=== PATIENT | male | born 1935 | race Caucasian/White ===

== ENCOUNTER → 2016-11-20 | Outpatient (CLI) | payer MEDICARE, MEDICAID ==
[~2016-11-20] MED LIST: ALPR0.5T; ASP81 PO; CALC300T34; CARV6.25 PO; DULO60CA6; DUR25P TD; HYDR-906 PO; LEVO250T35 PO; LEVO25TA53 PO; MULT1CAP57; OMEP20CA16; PREG50CA PO; [UNRECOGNIZED DRUG - CODE] IV
--- NOTE | 2016-11-20 17:18 | RADRPT ---
PROCEDURE: XR Pelvis and Hips. CLINICAL INDICATION: Pelvic pain. Bilateral hip pain. TECHNIQUE: Five views. Frontal pelvis. Frontal and lateral right hip. Frontal and lateral left hip. COMPARISON: No prior studies are available for comparison. FINDINGS: There is no fracture or dislocation. The soft tissues are normal. There is a right hip total arthroplasty which appears satisfactory. Previously noted right lateral surgical drains are no longer present. Antibiotic beads are no longer visualized. The left hip is unremarkable. There is no lytic or blastic lesion. There are degenerative changes of the lower lumbar spine. IMPRESSION: 1. Satisfactory postoperative appearance of the right hip. 2. Degenerative changes of the lower lumbar spine. RPTAT: QQ .Arslan Hung MD, MD Date Time Electronically viewed and signed by .Arslan Hung MD, on 11/20/2016 17:18 .R/
--- NOTE | 2016-11-21 10:44 | HKNOTE ---
DATE OF SERVICE: Patient comes in for a checkup on his right hip. The hip has minimal pain and he is pleased with th e results of the surgery. On physical examination, he walks without a walking aid. His temperature is 98.6. The wound over t he right thigh is completely healed without any sign of infection. Small sutures which were previou sly hidden under eschar are now visible and these were removed today under sterile conditions. Note, that patient complains of low back pain with radiation down both legs to the knee and sometime s even below the knee. He also complains that in his left hip he feels "a bone spur" near the upper end in the hip. On physical examination indeed, there does appear that there is some type of bony protuberance where he is pointing. His x-rays of his left hip did not show any such protuberance. The wound over the right side are completely healed. MANAGEMENT: The patient will be seen again in 3 months' time for reevaluation. He is being seen to day for his right hip. Other issues he wants to bring up like chronic sciatica and an osteophyte of the left hip will be dealt with next time. Dictated By: JAELYN NEGRETE/STEPHENIE Conf#: [id number] DID#: [id number]
== END | disposition home or self-care (01) ==
LOC: HKI 15:39
DX: Z47.89 Encounter for other orthopedic aftercare (principal); M25.551 Pain in right hip
CPT/HCPCS: 73523; G0463

== ENCOUNTER → 2016-12-16 | Outpatient (CLI) | payer MEDICARE, MEDICAID ==
[~2016-12-16] MED LIST changes: -ASP81 PO; +ASPI81TA3 PO
--- NOTE | 2016-12-16 18:13 | HKNOTE ---
DATE OF SERVICE: 12/16/2016 MAIN COMPLAINT: Pain in the right hip. 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 He developed progressively increasing pain in the right hip over the past 2 days. There has not been any recent history of infection. He has not had any fevers or chills. PHYSICAL EXAMINATION GENERAL: He walks with 2 walking aids. He does not appear to be in pain. VITAL SIGNS: Blood pressure 110/80, temperature 98.4. RIGHT HIP: No external signs of infection or inflammation around the wound. The hip has an excelle nt range of motion without any pain. IMAGING: X-rays obtained today of the right hip do not show anything untoward with the alignment of the implants or the quality of the bones. DISCUSSION: The patient may have just simply overused his right hip. MANAGEMENT: He was given reassurance. He will be seen again in 2 months' time or sooner if necessa ry. Dictated By: JAELYN NEGRETE/STEPHENIE Conf#: [id number] DID#: [id number]
--- NOTE | 2016-12-17 14:50 | RADRPT ---
PROCEDURE: XR Right hip and pelvis. CLINICAL INDICATION: Right hip pain. Pelvic pain. Postop. TECHNIQUE: Two views. Frontal pelvis and lateral right hip. COMPARISON: 11/20/2016. FINDINGS: There is no fracture or dislocation. The soft tissues are normal. There is a right hip total arthroplasty which appears satisfactory. The left hip is grossly normal. There is hardware in the left femur distally. There is no lytic or blastic lesion. The upper pelvis is not completely included on the image. IMPRESSION: 1. Satisfactory postoperative appearance of the right hip. 2. Grossly normal appearance of the left hip. 3. Hardware in the left femur. RPTAT: QQ .Arslan Hung MD, MD Date Time Electronically viewed and signed by .Arslan Hung MD, on 12/17/2016 14:50 .R/
== END | disposition home or self-care (01) ==
LOC: HKI 15:06
DX: M25.551 Pain in right hip (principal)
CPT/HCPCS: 73502; G0463

== ENCOUNTER → 2016-12-24 | Outpatient (CLI) | payer MEDICARE, MEDICAID ==
--- NOTE | 2016-12-24 15:47 | RADRPT ---
PROCEDURE: Left knee radiographs. CLINICAL INDICATION: Left knee pain. Postop. TECHNIQUE: Three views. Weight bearing. Frontal, lateral, and patellar view. COMPARISON: 06/18/2016. FINDINGS: There is no fracture or dislocation. Vascular calcifications are present consistent with atherosclerosis. There is a total left knee arthroplasty which appears satisfactory. There is no lytic or blastic lesion. There is no joint effusion. IMPRESSION: 1. Atherosclerosis. 2. Satisfactory postoperative appearance of the left knee. RPTAT: QQ .Arslan Hung MD, MD Date Time Electronically viewed and signed by .Arslan Hung MD, MD on 12/24/2016 15:46 .R/
--- NOTE | 2016-12-26 06:13 | HKNOTE ---
DATE OF SERVICE: 12/24/2016 MAIN COMPLAINT: Pain in his left knee and pain in the right hip. HISTORY OF PRESENT ILLNESS: The pain in the right hip is localized to the buttocks and radiates anila n his leg to the ankle. The pain in the left knee is approximately around the suprapatellar area. He has a long history of problems with his lower back. He has never had an MRI scan of the lumbar s pine because he had a pacemaker. PHYSICAL EXAMINATION: VITAL SIGNS: His temperature is 98.0, blood pressure 135/65. EXAMINATION OF THE LEFT KNEE: No external sign of infection or inflammation. Minimal pain on putti ng the knee through a range of motion. EXAMINATION OF THE RIGHT HIP: No external sign of infection or inflammation. NEUROLOGIC: Motor examination reveals no muscle deficit in the lower extremities. Deep tendon refle xes in the lower extremities: Right knee jerk plus, left knee jerk plus, right ankle jerk plus, lef t ankle jerk plus. Straight leg raising is negative bilaterally at 80 degrees. Lasegue and BLESSING anali ts are negative. MANAGEMENT: 1. The patient is being sent for a CAT scan of the lumbar spine. 2. The patient is being sent for CBC, sed rate, and C-reactive protein. He will be seen back again in 1 week's time for reevaluation. Dictated By: JAELYN NEGRETE/STEPHENIE Conf#: [id number] DID#: [id number] CC: JAELYN MATTHEWS MD;*EndCC*
== END | disposition home or self-care (01) ==
LOC: HKI 13:45
DX: M25.562 Pain in left knee (principal); M25.551 Pain in right hip; Z95.0 Presence of cardiac pacemaker
CPT/HCPCS: 73562; G0463

== ENCOUNTER → 2017-01-06 | Outpatient (CLI) | payer MEDICARE, MEDICAID ==
--- NOTE | 2017-01-07 20:18 | HKNOTE ---
DATE OF SERVICE: The patient comes in for review of his MRI scan. Review of the MRI scan of his lumbar spine casimiro esquivel on 12/25/[address] Louann Tripp as showing "at L4-L5, severe narrowing of the can al including the lateral recesses." The patient now has pain in his right groin for the first time. The labs from his last visit showed a sedimentation rate of 34. The C-reactive protein was 0.24. W rico cell count was 6.0 (low). PHYSICAL EXAMINATION: The patient has pain in his right hip on putting it through range of motion. MANAGEMENT: Under sterile conditions, the right hip was aspirated of some 10 mL of murky fluid. Th e fluid is being sent to the lab for cell count, culture and sensitivity. He was given prophylactic antibiotic to cover him. Dictated By: JAELYN NEGRETE/STEPHENIE Conf#: [id number] DID#: [id number]
== END | disposition home or self-care (01) ==
LOC: HKI 13:20
DX: M25.551 Pain in right hip (principal)
CPT/HCPCS: 20610

== ENCOUNTER → 2017-01-13 | Outpatient (CLI) | payer MEDICARE, MEDICAID ==
--- NOTE | 2017-01-13 19:21 | HKNOTE ---
DATE OF SERVICE: 01/13/2017 The patient comes in for review of his lab work. The fluid taken from his right hip joint at the [facility] visit is negative for bacterial growth. He also indicates that the pain in his right groin is mu ch better. He continues to complain of pain in the right buttocks radiating all the way down the le g to the ankle. The patient's most recent sedimentation rate was 34, white cell count 6.0. C-react luci protein 0.24. See the CAT scan result in the chart. The patient has severe spinal stenosis. He is 81 years old a nd he indicates that he would rather not consider surgery to his spine, even if it was offered to dc joseph. I was going to get lower extremity EMGs and nerve conduction studies, but they are obviously of no value if he is not going to have surgery. The patient requests a prescription for physical thera py to strengthen his right leg to ameliorate his sciatica. At his request, he is given a prescripti on for temazepam 15 mg at bedtime p.r.n. Dictated By: JAELYN NEGRETE/STEPHENIE Conf#: [id number] DID#: [id number]
== END | disposition home or self-care (01) ==
LOC: HKI 15:36
DX: M25.551 Pain in right hip (principal); M48.00 Spinal stenosis, site unspecified; Z96.641 Presence of right artificial hip joint

== ENCOUNTER → 2017-01-20 | Outpatient (CLI) | payer MEDICARE, MEDICAID ==
--- NOTE | 2017-01-21 07:32 | HKNOTE ---
DATE OF SERVICE: 01/20/2017 Patient comes in complaining that his left knee is "squeaking" On physical examination, the patient does have a certain amount crepitus in the knee suggesting that he has scar tissue formation. Patient is advised that there is really nothing to do about. It is not a sign that there is any unde rlying problem with the knee replacement. Patient will be starting a course of physical therapy terri orrow which he will continue 3 times a week for 6 weeks, and he will come back after this for reeval uation. Dictated By: JAELYN NEGRETE/STEPHENIE Conf#: [id number] DID#: [id number]
== END | disposition home or self-care (01) ==
LOC: HKI 15:24
DX: Z47.1 Aftercare following joint replacement surgery (principal); Z96.652 Presence of left artificial knee joint
CPT/HCPCS: G0463

== ENCOUNTER → 2017-02-05 | Outpatient (CLI) | payer MEDICARE, MEDICAID ==
--- NOTE | 2017-02-06 03:54 | HKNOTE ---
DATE OF SERVICE: 02/05/2017 The patient comes in complaining of pain and weakness of both quadriceps. He has spinal stenosis. He has had 2 knee replacements. On physical examination, the patient walks without a walking aid. Examination of both knees indicate that the quadriceps mechanism is intact. He has some weakness of the quadriceps [4 out of 5], but he has no pain on attempting to flex the knee passively against re sistance. The patient is going to be honored at the "[facility]" on 03/28/2017. He is anxious that his legs should be strong when he goes up to receive his award. He would like to have physical therapy 3 times a week to ensure that he will be "as good as I can be" by the time that co mes. The patient was warned that he is going to run out of his allotted physical therapy time if he does that, but he says that he does not care and he wants to have as much therapy as he can in the remaining 6 weeks. He was given a prescription with warnings against being overly aggressive for fe ar of rupturing the quadriceps. Dictated By: JAELYN NEGRETE/STEPHENIE Conf#: [id number] DID#: [id number]
== END | disposition home or self-care (01) ==
LOC: HKI 16:03
DX: Z47.89 Encounter for other orthopedic aftercare (principal); Z96.653 Presence of artificial knee joint, bilateral
CPT/HCPCS: G0463

== ENCOUNTER → 2017-04-23 | Outpatient (CLI) | payer MEDICARE, MEDICAID ==
--- NOTE | 2017-04-23 15:56 | PN ---
Date/Time of Note Date/Time of Note DATE: 04/23/17 TIME: 15:51 Outpatient Progress Note Chief Complaint Left hip pain HPI 81-year-old male presents today for left hip pain after fall on 04/21/2017. Patient was able to rise and begin walking without limitation. Denies any head injury or trauma. No focal neurological deficits. Continues with ongoing pain local to the greater trochanteric region of the left hip. Denies any chest pain /tightness. Denies any shortness of breath. History significant for right total hip replacement as well as revision performed on 08/07/2016. Review of Systems Const: No Fever, no chills, no Fatigue, normal appetite, no diaphoresis. Resp: No SOB, no wheezing, no chest pain. CV: No chest pain, no palpitaions, no CHANDRA. Physical Exam Blood pressure is 131/60, temperature is 99.1, pulse is 60, respiratory rate is 12, height is 5 foot 7 inches, weight is 130 pounds. General Appearance: well-developed, well-nourished, in no acute distress. Left hip: Assisted ambulation with single-point cane. Local tenderness to palpation directly over the left greater trochanter. Mild bruising seen on inspection. Patient is seated comfortably at 90. Normal sensory examination to light touch throughout the left lower extremity. Negative Homans sign. Right hip: Seated comfortably at 90. Mild tenderness to palpation of the right greater trochanteric region. X-ray to the right hip on 04/23/2017 showing prosthesis intact and well attached to the bone. No complications status post surgery. X-ray to the left hip on 04/23/2017 showing osteophytosis along the lateral ileal cortex. No evidence of acute injury/fracture at the area of pain or impact. No evidence of acute injury on x-rays. Allergies Coded Allergies: No Known Drug Allergies (Verified Allergy, Unknown, 07/23/16) Assessment/Plan * X-rays performed today * Patient was also seen with Dr. Salazar who recommended cortisone injection for bursitis to the greater trochanter status post fall. Area was cleaned with Betadine. 25-gauge needle used to inject 2 cc of 40 mg Kenalog mixed with 3 cc of 2% lidocaine without epinephrine. Patient tolerated procedure well. * At home exercises discussed. * Ice modalities recommended. * Continue with anti-inflammatories been provided by PCP as he states that it has been helping. Also continue with pain management has been treating patient with [place], Lyrica, Cymbalta and Xanax. * Follow-up as needed Medications Home Meds Active Scripts Piperacillin/Tazobactam Sod (Zosyn) 2.25 Gm Soln, 2.25 GM IV Q12 for 42 Days Prov:RACIEL LLOYD 08/12/16 Levofloxacin* (Levaquin*) 250 Mg Tablet, 250 MG PO DAILY@06 for 42 Days, #42 TAB Prov:RACIEL LLOYD 08/12/16 Aspirin (Aspirin) 81 Mg Chew, 81 MG PO BID for 42 Days, #84 TAB Prov:RACIEL LLOYD 08/07/16 Reported Medications Hydrocodone/Acetaminophen ([place] 5-325 Tablet) 1 Each Tablet, 1 EACH PO, TAB 07/23/16 Fentanyl Patch* (Duragesic Patch*) 25 Mcg/Hr Transdermal Patch, 1 PATCH TD Q72H , PATCH 07/23/16 Pregabalin* (Lyrica*) 50 Mg Capsule, 50 MG PO BID, CAP 07/23/16 Levothyroxine Sodium* (Levothyroxine Sodium*) 25 Mcg Tablet, 25 MCG PO BEFORE BREAKFAST, #30 TAB 07/23/16 Carvedilol* (Coreg*) 6.25 Mg Tablet, 6.25 MG PO BID, TAB 08/30/15 Multivitamins W-Minerals (Multivitamin) 1 Cap Capsule 03/25/11 Calcium Carbonate (Tums EX) 1 Tab.chew Tab.chew 03/25/11 Alprazolam* (Xanax*) 0.5 Mg Tab 03/18/11 Duloxetine Hcl* (Cymbalta*) 60 Mg Capsule. 03/18/11 Omeprazole* (Omeprazole*) 20 Mg Capsule. 03/18/11 CHRISTOPHER PEGUERO PA-C Apr 23, 2017 15:55
--- NOTE | 2017-04-23 17:32 | RADRPT ---
PROCEDURE: XR Pelvis and Hips. CLINICAL INDICATION: Pelvic pain. Bilateral hip pain. TECHNIQUE: Five views. Frontal pelvis. Frontal and lateral right hip. Frontal and lateral left hip. COMPARISON: 12/16/2016. FINDINGS: There is a right hip total arthroplasty which appears satisfactory. The left hip is grossly normal. There is hardware in the distal left femur. The upper pelvis is not included on the image. There is no lytic lesion. IMPRESSION: 1. Satisfactory postoperative appearance of the right hip. 2. Prior distal left femur surgery. RPTAT: QQ .Arslan Hung MD, MD Date Time Electronically viewed and signed by .Arslan Hung MD, on 04/23/2017 17:31 .R/
== END | disposition home or self-care (01) ==
LOC: HKI 13:46
DX: M70.62 Trochanteric bursitis, left hip (principal); Z79.82 Long term (current) use of aspirin
CPT/HCPCS: 73522

== ENCOUNTER → 2017-05-19 | Outpatient (CLI) | payer MEDICARE, MEDICAID ==
--- NOTE | 2017-05-29 12:00 | HKNOTE ---
DATE OF SERVICE: 05/19/2017 HISTORY OF PRESENT ILLNESS: The patient comes in complaining of pain in his right hip. The patient underwent a right total hip replacement in August 2016. His pain is over his right greater trochanter. His left hip was injected for trochanteric bursitis at his last visit. The left hip is no longer painful. He complains of weakness of his right hip flexors. He is under pain management care of Dr. Patel. The patient is very pleased with the pain management doctor. He says, "They treat me like a VIP and put me right to the front of the line whenever I go there." However, on questioning further, all treatment that he ever gets there is to be given prescriptions for [place]. PHYSICAL EXAMINATION: Temperature is 97.8, blood pressure 125/65. He walks without a walking aid. Right hip is full range of motion without pain. He has marked tenderness over the right greater trochanter. IMAGING: X-rays of the right hip taken on 04/23/2017. These do not show any underlying problem with the hip implant that might be the source of his pain. Note that he had an irrigation drainage of the right hip postoperatively for infection. There is absolutely no external sign of infection or inflammation and his temperature is 97.8. DIAGNOSIS: Trochanteric bursitis. MANAGEMENT: 2 cc of Kenalog with 6 cc given in lidocaine in his trochanteric bursa and he will be seen again as necessary. Dictated By: Misha Salazar MD /kirill/tori /Document#: [id number]
== END | disposition home or self-care (01) ==
LOC: HKI 13:45
DX: M70.61 Trochanteric bursitis, right hip (principal); Z47.1 Aftercare following joint replacement surgery; Z96.641 Presence of right artificial hip joint; M25.551 Pain in right hip
CPT/HCPCS: 20610; G0463

== ENCOUNTER → 2017-06-02 | Outpatient (CLI) | payer MEDICARE, MEDICAID ==
--- NOTE | 2017-06-03 06:48 | HKNOTE ---
DATE OF SERVICE: 06/02/2017 INTERVAL HISTORY: The patient continues to complain of pain over the lateral aspect of the left thigh. PHYSICAL EXAMINATION: On examination, once again, it is noted that he has an exostosis or a prominence of bone which he says hurts him all the time and he is tender all the time. The plain x-rays of the left hip were again reviewed. These show some kind of exostosis protruding from the lower end of the pelvis. On physical examination, there is an easily palpable bony prominence which very likely could be this exostosis. MANAGEMENT: The patient is being referred for a CAT scan of the left hip to see the exact anatomy before we commit to removing it. The patient is going to see a spine surgeon tomorrow, Dr. Armstrong at the [facility] [place]. The patient will be seen again after he has had MRI scan. Note: He is not complaining of any pain in the right hip at this time. Dictated By: Misha Salazar MD /kirill/wilian /Document#: [id number]
== END | disposition home or self-care (01) ==
LOC: HKI 14:42
DX: M25.552 Pain in left hip (principal)

== ENCOUNTER → 2017-06-17 | Outpatient (CLI) | payer MEDICARE, MEDICAID ==
--- NOTE | 2017-06-18 10:21 | HKNOTE ---
DATE OF SERVICE: 06/17/2017 MAIN COMPLAINT: The patient comes in with a CAT scan for review. HISTORY OF MAIN COMPLAINT: CAT scan of the left hip is reported by Dr. 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 Pictures were reviewed with the patient. Today, his pain is a lot more vague. It is difficult to determine whether his pain is in the area of the spur/osteochondroma arising from the left ilium or if it is in relationship to the free ectopic bone. The patient also continues to have pain in his right buttock, which all seems to be coming from his lower back. The patient was advised that removing the bony prominence that could be felt in his buttock is no guarantee that his pain will go away. It would appear that the patient was strictly under the impression that this bone was being removed to "give him a cure." The patient would like to think about it and he will call if he wishes us to try and remove some of the offending spur perhaps under local anesthetic (it may be too big to do under local anesthetic alone). Dictated By: Misha Salazar MD /kirill/gallo /Document#: [id number]
== END | disposition home or self-care (01) ==
LOC: HKI 15:48
DX: M25.552 Pain in left hip (principal)

== ENCOUNTER → 2017-10-13 | Outpatient (CLI) | payer MEDICARE, MEDICAID ==
--- NOTE | 2017-10-13 22:10 | HKNOTE ---
DATE OF SERVICE: 10/13/2017 CHIEF COMPLAINT: Left shoulder pain. HISTORY OF PRESENT ILLNESS: This is an 82-year-old male who is complaining of pain in the left shou lder. He states that the pain has been chronic, it has been worsening over the last year. He has d ecreased range of motion. He has difficulty bringing his arm in towards his back. He has not had a ny previous treatment. He recently went to the emergency department and had an injection of the lef t shoulder. He states that his pain has not improved. He denies any neck pain. He denies any hist ory of head trauma. LEFT SHOULDER EXAMINATION: No deformities noted. Tender over the left AC joint. 110 degrees of fo rward flexion, 120 degrees of abduction, 70 degrees of internal rotation, 80 degrees of external rot ation, 20 degrees of extension, 20 degrees of adduction. Positive Nolasco, positive Neer's. IMAGING: X-rays, left shoulder: Three views of the left shoulder demonstrate glenohumeral joint sp maura narrowing. No osteophytes are seen. No fractures, dislocations. There is also degenerative ch anges of the AC joint. 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 PLAN: He was given a prescription for physical therapy. He was instructed on home exercises. He w ill follow up as needed. Dictated By: MARY DAILEY/STEPHENIE Conf#: [id number] DID#: [id number]
--- NOTE | 2017-10-14 12:08 | RADRPT ---
PROCEDURE: XR left shoulder. CLINICAL INDICATION: Left shoulder pain TECHNIQUE: AP, Internal and external rotation views of the shoulder were performed. COMPARISON: None. FINDINGS: There is normal osseous mineralization and alignment. No acute fracture or osseous lesion is identified. There are normal joints without evidence of arthritis or dislocation. The soft tissues are unremarkable. 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 IMPRESSION: No definite abnormalities are identified. A left subclavian pacemaker obscures the inferior glenohum eral joint. RPTAT:AAJJ Physician Walter Date Time Electronically viewed and signed by Physician Walter on 10/14/2017 12:08 /
== END | disposition home or self-care (01) ==
LOC: HKI 15:13
PROVIDERS: ATTEND Orthopaedic Surgery Adult Reconstructive Orthopaedic Surgery
DX: M19.012 Primary osteoarthritis, left shoulder (principal)
CPT/HCPCS: 73030; G0463

== ENCOUNTER → 2018-02-16 | Outpatient (CLI) | END | disposition home or self-care (01) ==

== ENCOUNTER → 2018-04-06 | Outpatient (CLI) | END | disposition home or self-care (01) ==